=== PATIENT | male | born 1940 | race Caucasian/White ===

== ENCOUNTER 2016-09-02 16:14 | Observation (INO) | payer OTHER ==
--- NOTE | ~2016-09-02 | CO ---
Unit #: [id number] #: [id number] Patient: TANG PATE [id number] [facility]. [place] [id number] [facility] [place] [facility]. [place], [place] [address] [id number] MR#: [id number] NAME: TANG PATE ROOM: 550 Age: 75 Sex: M Admission Date: 09/02/2016 : 1940 Attending Physician: Vashti Hussein M.D. Primary Care Physician: Hank Paez M.D. Consultation Date: 09/03/2016 CONSULTATION REPORT REASON FOR CONSULTATION Atypical chest pain and poorly-controlled hypertension. HISTORY OF PRESENT ILLNESS This is a 75-year-old white male who is well known to Dr. Moreau. He sees him in the office. He has a history of having a stent placed in 2005 and 2008 and had a normal stress test on May 29 of last year. His ejection fraction was 69%. He also had a heart catheterization about a year ago that revealed that the stents were patent. Patient has hypertension, benign prostatic hypertrophy, and hyperlipidemia. Patient had recent cervical fusion. Surgery was done at the [facility] on August 15. Since that time, he says he has been noting some right-sided chest pain and also having some achiness over the incisional site. He has been having some problems with his blood pressure also. He admits that sometimes he forgets to take his blood pressure and then may skip it for that day, but he tries to stay compliant. He took his blood pressure the morning of admission, and he said his blood pressure was reading 180/110 and his heart rate was 108. The chest pain he is experiencing is right anterior chest wall without any radiation. He says it feels like just waxing and waning pushing and aching pressure. He denies any pain over his midsternal or over on the left anterior chest wall side. He denies any pain in his jaws or down upper extremities. He denies any shortness of breath. He has had no dizziness, presyncope, or syncopal episode. He denies any fever or chills and no nausea, vomiting, diarrhea, or abdominal pain. In the emergency room, patient's blood pressure was 175/103, heart rate 102, and temperature was 100. Patient had a mild elevation in his WBC which was 13.1 and lactic acid was elevated at 2.4. His chest x-ray was unremarkable. CT of the chest was done and was negative for PE and did not reveal any pneumonia. His urinalysis was unremarkable. Patient also states that since his surgery he has been having occasionally some difficulty swallowing his food, and he would like to make sure that there are not any issues going on since the surgery. He will get a swallowing study. Patient was given an extra dose of lisinopril and started on some Norvasc. 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 PAST MEDICAL HISTORY 1. Coronary artery disease. In 2005, he had PCI and stent to the RCA. In 2008, he had PCI and stent to the circumflex. Unit #: [id number] #: [id number] Patient: TANG PATE 2. May 2015 cardiac catheterization revealed LVEF of 60% to 65%, LAD 30% to 40% stenosis, left main was normal, and left circumflex patent stent with 40% stenosis in the first marginal branch. The RCA stent was patent with moderate dilatation of the aortic root. No aortic insufficiency. 3. May 2016 stress test at [facility] revealed an EF of 69%, no ischemia, and normal wall motion. 4. Hypertension. 5. Benign prostatic hypertrophy. 6. Anxiety. 7. Hyperlipidemia. 8. History of vertigo. 9. Nonsmoker. 10. History of ascending aortic aneurysm which is stable. 11. Recent cervical fusion by Dr. Villegas. 12. Stable ascending aortic aneurysm measuring 4.3 to 4.4 cm. PAST SURGICAL HISTORY 1. Percutaneous coronary intervention and stent to the RCA in 2005. 2. Percutaneous coronary intervention and stent to the circumflex 2008. 3. Cervical fusion at the [facility] on August 15, 2016. 4. Transurethral resection of the prostate. HOME MEDICATIONS 1. Flomax 0.4 mg p.o. daily. 2. Percocet 10/325 at 1 tablet p.o. every 4 hours p.r.n. 3. Inderal 40 mg p.o. twice daily. 4. Pepcid 40 mg p.o. twice daily. 5. Flexeril 10 mg p.o. every 8 hours p.r.n. 6. Ambien 10 mg p.o. at bedtime p.r.n. 7. Pravastatin 10 mg p.o. at bedtime. 8. Sertraline 50 mg p.o. daily. 9. Aspirin 325 mg p.o. daily. 10. Hydrochlorothiazide 25 mg p.o. daily. 11. Lisinopril 20 mg p.o. daily. 12. Sulindac 150 mg p.o. twice daily. 13. Potassium chloride 10 mEq p.o. twice daily. ALLERGIES COMPAZINE, PERCODAN, XANTHINES, PHENOTHIAZINES, AMINOPHYLLINE, MORPHINE, PROCHLORPERAZINE, CODEINE, OXYCODONE, MORPHINE WHEN MIXED WITH LOPRESSOR, AND CODEINE AND LOPRESSOR WHEN MIXED WITH MORPHINE-HE STATES HIS BLOOD PRESSURE BECOMES LOW ON THESE TWO MEDICATIONS. SOCIAL HISTORY Patient is a and lives by himself. He has been a lifelong nonsmoker and no alcohol or illicit drug abuse. FAMILY HISTORY His father and brother both of sudden cardiac . His sister of colon cancer. Diabetes and hypertension run in his family. REVIEW OF SYSTEMS See details in History of Present Illness. PHYSICAL EXAMINATION GENERAL: On exam, Mr. Pate is a 75-year-old white male in no acute respiratory distress. He is awake, alert, and oriented. Unit #: [id number] #: [id number] Patient: TANG PATE VITAL SIGNS: This morning blood pressure is 166/85, heart rate 60, respirations 18, temperature 98.1, and O2 saturations 99% on room air. NECK: Trachea midline. No thyromegaly or lymphadenopathy. Normal carotid upstrokes. No jugular venous distention. Noticed on the right-sided neck line previous incision healing well. HEART: S1 and S2, regular rate and rhythm. Soft systolic murmur left sternal border. LUNGS: Bilaterally clear throughout. No wheezes, rales, or rhonchi. ABDOMEN: Soft and nontender. Positive bowel sounds present. No hepatosplenomegaly. EXTREMITIES: Pedal pulses are palpable. No pedal edema. DIAGNOSTIC STUDIES LABORATORY: Glucose is 100, BUN 13, creatinine 0.8, eGFR above 60, sodium 143, potassium 4.3, chloride 103, CO2 of 27, calcium 9.1, magnesium 1.7, total protein 6.5, albumin 3.9, bilirubin total 0.7, AST 24, ALT 28, and alkaline phosphatase is 105. BNP is 60. Lactic acid was 2.4 on admission and this morning is 1.9. TSH is 1.44. WBC 10.9, hemoglobin 13.8, hematocrit 39.9, and platelets 221,000. Negative influenza A and B screen. Urinalysis with 1+ urobilinogen, otherwise unremarkable. Initial cardiac enzymes: CK-MB is 2.7 and troponin less than 0.05. CK-MB 1.4 and troponin less than 0.05. INR is 1. IMAGING: Chest x-ray shows lungs are well expanded and clear. No active disease. CT of the chest with contrast shows no evidence of pulmonary embolism, otherwise nothing acute. Stable ascending aortic aneurysm measuring 4.3 to 4.4 cm. No dissection. CARDIOLOGY: EKG shows normal sinus rhythm with ventricular rate 92 beats per minute, probable Q wave in V1, poor R wave progression, and also Q waves in inferior leads. IMPRESSION 1. Right anterior chest wall/atypical chest pain. 2. Poorly-controlled hypertension. 3. Hypokalemia. 4. Dysphagia since his recent cervical fusion. 5. Elevated lactic acid. 6. Coronary artery disease. See details in History of Present Illness. 7. Stable ascending aortic aneurysm. 8. Benign prostatic hypertrophy. 9. Gastroesophageal reflux disease. PLANS 1. Cardiology consulted to assist with evaluation and management. 2. Patient currently takes lisinopril, Inderal, and hydrochlorothiazide for his blood pressure management at home. According to the patient, he had been on Norvasc a few weeks back, and that was stopped by his primary care physician. But will put him back on the Norvasc at 10 mg daily, in addition to increase his dose of lisinopril from 20 mg daily to 20 mg twice daily. 3. Supplement patient's potassium and will discharge home on potassium supplement in addition to keeping him on his hydrochlorothiazide daily. 4. On exam, there are no signs or symptoms of unstable angina. His chest pain in the right anterior chest wall is atypical. It is more musculoskeletal in nature. 5. Patient has an appointment to follow up with Dr. Moreau on , Unit #: [id number] #: [id number] Patient: TANG PATE October 23, at 3:30 p.m. The plans are if the patient's blood pressure stabilizes by this afternoon and he ambulates without any issues, and also if he has a negative swallow test, he will be discharged home today. 6. Instruct the patient when he is monitoring his blood pressure to call our office if he feels like he needs to report any blood pressure readings. 7. Encourage the patient to be compliant with his medication. He admits to not taking his blood pressure medication correctly, and patient verbalized understanding. 8. Further recommendations pending per Dr. Jimenes. Thank you very much for allowing us to assist in the care. Dictated by... Xochilt Blanco A.P.R.N. for Martha Sparks/nighat TD: 09/03/2016 21:58 JOB #: [id number] CC: Alejandro Moreau M.D. CONSULTATION REPORT X Xochilt Blanco APRN X CONSULTATION REPORT
--- NOTE | ~2016-09-02 | HP ---
Unit #: [id number] #: [id number] Patient: TANG PATE [id number] [place] [id number] [facility]. [place], [place] [address] [id number] MR#: [id number] NAME: TANG PATE ROOM: Age: 75 Sex: M Admission Date: 09/02/2016 : 1940 Attending Physician: Ester Ren M.D. Primary Care Physician: Hank Paez M.D. HISTORY AND PHYSICAL CHIEF COMPLAINT Chest pain, elevated blood pressure. HISTORY OF PRESENT ILLNESS Mr. Pate is a nice 75-year-old male who is two weeks status post anterior cervical neck fusion. This was done by Dr. Villegas on August 15, 2016 at [facility]. Patient states he has been doing well since surgery; however, today he noticed some right-sided chest pain. This is deeply achy and tender to palpation and present over the lateral portion of the pectoral muscle. This has not been associated with any nausea or vomiting nor has the patient had any shortness of breath. He denies any cough. He denies any lightheadedness. However, when he started having this pain today at home he became concerned, took his blood pressure and noted that it was high though he cannot recall the reading. He states that his pulse rate was also elevated at 108 and states his normal pulse runs in the 60s. He decided to wait a little bit, recheck his blood pressure and pulse rate and both were still high. He became significantly concerned and called EMS after discussing this with his primary care provider. Upon presentation to the ER here patient was only mildly tachycardic with a heart rate of 102 and blood pressure was elevated at 175/103. Temperature was elevated x1 at 100.0. Patient had blood work drawn demonstrating a mild elevation in his white blood cell count to 13.1 and lactic acid was mildly elevated at 2.4. However, patient has subsequently undergone a chest x-ray which is unremarkable, a CT angiogram of the chest which is negative for PE and does not reveal any pneumonia and a urinalysis which is unremarkable. He denies any melena, hematochezia. He denies any diarrhea. In fact he has had constipation. Patient is very concerned that he was sent home from [facility] too early after his surgery which is the following day and thinks he has not been doing well since then. He has not noticed any drainage from his incision site. He has not noticed any significant erythema of his incision site and denies any fevers prior to today. Again he has had no cough. He denies any heartburn. He does endorse some nocturia which is chronic. He does endorse some difficulty swallowing since his surgery. Patient is being placed in observation due to his elevated blood pressure and his atypical chest pain. I will note the patient is asking to see Dr. 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 PAST MEDICAL HISTORY 1. Coronary artery disease, status post stenting x2. Per record review patient had a stent of the RCA in October 2005 and a stent to the left circumflex in 2007. Unit #: [id number] #: [id number] Patient: TANG PATE 2. Hypertension. 3. Hyperlipidemia. 4. Benign prostatic hypertrophy. 5. Gastroesophageal reflux disease. 6. Cervical degenerative disease status post fusion. PAST SURGICAL HISTORY Past surgical history includes: 1. TUNA. 2. TURP. 3. Heart cath x4 with stenting as previously noted. 4. Recent cervical fusion done by Dr. Villegas. ALLERGIES Include Compazine, oxycodone, xanthenes, phenothiazines, aminophylline, morphine when mixed with Lopressor, codeine and Lopressor when mixed with morphine. He states his blood pressure becomes low on these two medications. FAMILY HISTORY Family history is significant for coronary artery disease in the patient's father and brother both of whom of sudden cardiac . The patient's sister of colon cancer. Diabetes also runs in the family as does hypertension SOCIAL HISTORY Patient is a and lives by himself. He has never smoked nor does he ever drink any alcohol. REVIEW OF SYSTEMS Endorses some constipation. Denies any chest pain outside of this localized chest pain. He does have significant concerns he may fall at home though he has not fallen in many months and he is concerned that perhaps again he was sent home from [facility] too early. He also states his blood pressure at home is checked several times daily and he notices during the middle of the day his blood pressure gets to 160 to 170 systolic but never "as high as it is now." Otherwise a 10-point review of systems is negative. He has not had any new visual changes. He intermittently has some tingling/numbness of the hands, namely thumb through middle finger but this is resolved currently. He has not had any new significant change in nocturia or urinary hesitancy. He denies any hematuria. PHYSICAL EXAMINATION VITAL SIGNS: Temperature upon presentation 100.0. Current temperature 98.1. Blood pressure 195/79 currently. This was as high as 199/96. Pulse rate 87. Respiratory rate 15. Oxygen saturation is in the upper 90s on room air. GENERAL: Patient is awake, alert and oriented x3. He is very pleasant but appears mildly anxious. HEENT: Pupils equally round and reactive to light bilaterally. Anicteric sclerae. No significant conjunctival pallor. Mild cataracts noted. Oropharynx with moist mucous membranes. No erythema or exudate. NECK: Supple. No lymphadenopathy. No thyromegaly. No JVD. HEART: Regular rate and rhythm without murmur, rub or gallop. LUNGS: Lungs are clear to auscultation bilaterally without wheezes, rhonchi or crackles. ABDOMEN: Abdomen is soft, nontender, nondistended. Positive bowel Unit #: [id number] #: [id number] Patient: PATE,ARNOLD sounds. No appreciable hepatosplenomegaly. EXTREMITIES: No cyanosis, clubbing or edema. Pedal pulse 2/4. SKIN: Skin is warm, moist. Incision over the right lower anterior neck is approximately 2 inches in width. There is an overlying scab but the surrounding area does not demonstrate any significant erythema or fluctuance. There is no induration noted and no drainage from the wound. MUSCULOSKELETAL: No significant abnormalities upon joint exam. Patient does have point tenderness to the very lateral portion of the right pectoral muscle, essentially mildly medial and inferior to the right shoulder and this does reproduce his chest pain. NEUROLOGIC: Cranial nerves II through XII intact. Sensation, strength and deep tendon reflexes are all grossly normal. Gait however was not assessed. PSYCHIATRIC: No suicidal or homicidal ideation but does appear anxious to me personally. DIAGNOSTIC STUDIES LABORATORY: Lab work done in the emergency department reveals a negative troponin x2. CBC reveals a white blood cell count of 13.2, hemoglobin 14.3, platelet count of 264,000 with normal differential. INR normal at 1.0. Lactic acid was initially 2.4 and repeat is currently pending. CMP reveals a sodium of 136, potassium 3.1, chloride 98, bicarb 28, BUN 19, creatinine 0.9, glucose of 143. LFTs are all normal with the exception of a mildly elevated alkaline phosphatase of 105. BNP is normal at 60. Urinalysis is also normal. Influenza swab is negative. CARDIOVASCULAR: EKG done in the emergency department reveals normal sinus rhythm. The patient does have Q waves in the inferior leads, namely II, III and aVF in addition to a large Q wave in V1. However there are no other acute ST or T-wave abnormalities. IMAGING: Chest x-ray done upon presentation to the emergency department essentially reveals a clear chest. CT angiogram of the chest done in the emergency department is negative for pulmonary embolism. The patient has a stable ascending aortic aneurysm that is known. There is no evidence of infiltrate. ASSESSMENT 1. Systemic inflammatory response syndrome without evidence of infection. 2. Atypical chest pain, likely musculoskeletal in origin. 3. Self-reported dysphagia with concerns for aspiration given recent cervical fusion. 4. Recent cervical fusion performed by Dr. Villegas. 5. Hypertensive urgency with questionable control of blood pressure at baseline. 6. Hypokalemia. 7. Stable ascending aortic aneurysm. 8. Benign prostatic hypertrophy. 9. Gastroesophageal reflux disease. 10. Coronary artery disease with last known stenting in 2007. 11. Anxiety. PLAN 1. Will place patient in observation overnight with telemetry. 2. I am going to follow up repeat lactic acid level. Patient was given Zosyn, vancomycin and tobramycin in the ER but again there has been Unit #: [id number] #: [id number] Patient: TANG PATE no evidence of infection on CT scan or urinalysis and his fever has been minimal. I am going to continue him on IV Levaquin given I have concern about aspiration. I am going to hold sepsis protocol otherwise given source of infection is unclear. In addition IV fluids would worsen blood pressure. 3. Per patient's request I am going to ask Dr. Payne to evaluate him regarding his atypical chest pain but I suspect this pain is muscular and secondary to his cervical spine collar. 4. I will have Speech evaluate the patient regarding his swallowing and see if he is having any aspiration given his recent surgery. 5. Will continue patient's home antihypertensive medications. In addition I will add Norvasc with the first dose tonight, an extra dose of lisinopril tonight and hydralazine on a p.r.n. basis. 6. Will continue home medication for benign prostatic hypertrophy, reflux and coronary artery disease. 7. Replace potassium orally. 8. Early ambulation as source of DVT prophylaxis. Dictated by Martha Ortiz/seth TD: 09/02/2016 20:35 JOB #: [id number] HISTORY AND PHYSICAL X Vashti Hussein MD HISTORY AND PHYSICAL
--- NOTE | ~2016-09-02 | CT16 ---
[facility] A Service of [facility] RADIOLOGY TEXT RESULTS PATIENT: TANG GONG LOCATION: [facility] 550-01 : 39 UNIT #: [id number] AGE: [address]: Vashti Hussein MD SEX: M ORDER DR: [id number] [facility] [address]. [place], [place] [address] [id number] MR#: [id number] Acc #: [id number] NAME: TANG GONG : 1940 SEX: M STUDY DATE/TIME: 09/02/2016 17:14 UNIT: [facility] ROOM: [facility] STUDY DESCRIPTION: CT Angio Chest for PE Attending Physician: Vashti Hussein M.D. Ordering Physician: Ester Ren M.D. Primary Care Physician: Hank Paez M.D. MEDICAL IMAGING REPORT This report is preliminary unless electronic signature is present EXAM CT of the chest with contrast, PE protocol. INDICATIONS 75-year-old male with right chest pain since August 15, today with increasing pain and heart rate. TECHNIQUE CT of the chest was performed following administration of IV contrast using a pulmonary embolism protocol. Coronal and sagittal reformatted images obtained. Comparison is made with 06/17/[address] exam was performed with one or more of the following radiation dose reduction techniques: automatic exposure control, adjustment of mA and/or kV according to patient size, and iterative reconstruction. FINDINGS There is no evidence of pulmonary embolism. There is a stable ascending aortic aneurysm measuring about 4.3-4.4 cm. There is no dissection. The descending thoracic aorta is within normal limits. No pleural effusion or suspicious lymphadenopathy. Coronary artery calcifications. There is minimal biapical scarring. There are a few scattered benign micronodules which are stable. There are scattered calcified granulomas. No suspicious nodule or airspace consolidation. Limited imaging of the upper abdomen is unremarkable. The bone windows are unremarkable.. IMPRESSION 1. There is no evidence of pulmonary embolism. 2. No acute findings. [facility] A Service [facility] RADIOLOGY TEXT RESULTS PATIENT: TANG GONG LOCATION: [facility] 550-01 : 39 UNIT #: [id number] AGE: [address]: Vashti Hussein MD SEX: M ORDER DR: 3. Stable ascending aortic aneurysm. 4. No dissection. Dictated by... Nickolas Negrete M.D. THIS IS AN ELECTRONICALLY VERIFIED REPORT Nickolas Negrete M.D. at 09/03/2016 3:36 PM SUKHJINDER/jeffery TD: 09/03/2016 07:20 JOB #: [id number] MEDICAL IMAGING REPORT COPY
--- NOTE | ~2016-09-02 | EKG ---
PATIENT: TANG GONG UNIT #: [id number] Ventricular Rate: 92 BPM Atrial Rate: 92 BPM P-R Interval: 168 ms QRS Duration: 90 ms Q-T Interval: 374 ms QTC Calculation(Bezet): 462 ms P [place]: 24 degrees Calculated R [place]: 21 degrees Calculated T [place]: 38 degrees Diagnosis Line: Normal sinus rhythm Diagnosis Line: Normal ECG Diagnosis Line: When compared with ECG of 17-APR-2010 06:26, Diagnosis Line: Vent. rate has increased BY 30 BPM Diagnosis Line: Minimal criteria for Anterior infarct are no Diagnosis Line: longer Present Diagnosis Line: Confirmed by RUSLAN REYES MD ([id number]) on 09/04/2016 Diagnosis Line: 5:31:18 PM INTERPRETING MD: ERIC LIN
--- NOTE | ~2016-09-02 | DS ---
Unit #: [id number] #: [id number] Patient: TANG PATE [id number] [address] [place], [place] [address] [id number] MR#: [id number] NAME: TANG PATE ROOM: 550 Age: 75 Sex: M Admission Date: 09/02/2016 : 1940 Discharge Date: 09/03/2016 Attending Physician: Vashti Hussein M.D. Primary Care Physician: Hank Paez M.D. DISCHARGE SUMMARY PRINCIPAL DIAGNOSES 1. Hypertensive urgency. 2. Systemic inflammatory response syndrome without evidence of sepsis. 3. Dysphagia following anterior cervical fusion without evidence of aspiration. 4. Atypical/musculoskeletal chest pain. 5. Recent anterior cervical fusion, currently being maintained on C-collar. 6. Coronary artery disease with negative stress test in May 2016. 7. Hypokalemia. 8. Known ascending aortic aneurysm, stable. 9. Anxiety. 10. Benign prostatic hypertrophy. 11. Gastroesophageal reflux disease. 12. Hyperlipidemia. 13. Essential tremor. CONSULTANTS Dr. Jimenes - Cardiology. PROCEDURES 1. Chest x-ray on September 02, 2016, with no acute findings. 2. CT angiogram of the chest on September 02, 2016, which was negative for pulmonary embolism. The patient did not have any signs of infiltrate. He did have a stable ascending aortic aneurysm. CLINICAL HISTORY/HOSPITAL COURSE Mr. Pate is a nice 75-year-old male who presents to the emergency department with chest pain and elevated blood pressure. Please refer to H and P for further details. Cardiac workup in the emergency department is unremarkable and includes three negative troponins. However, patient's blood pressure was ranging in the 190s to the low 200s systolic and, thus, he was placed in observation for evaluation. The patient was placed on lisinopril 20 mg twice daily in addition to Norvasc and his other home medications. This morning, blood pressures are improved at approximately 150/80 systolic. We are going to continue this medication regimen and he can follow up with his primary care physician, Dr. Paez, in addition to Dr. Moreau as an outpatient. The patient did have a stress test in May 2016 which was unremarkable. His chest pain was located peripherally over the right pectoral region where his C-collar sits. This is not felt to be cardiac chest pain and no further cardiac workup will be initiated. Unit #: [id number] #: [id number] Patient: TANG PATE The patient was mildly hypokalemic in the emergency department and we are going to increase his potassium supplementation as an outpatient. Will have to monitor closely given his hydrochlorothiazide treatment. There was concern upon presentation of perhaps patient may have sepsis given he had an elevated white blood cell count and a single elevated temperature of 100.0. However, patient remained afebrile throughout the rest of the hospitalization and his white blood cell count today is down to 10. I suspect his white blood cell count was reactive. He did receive a few doses of antibiotics in the emergency department but I cannot find anything source of infection and, thus, I am going to discontinue all antibiotics upon discharge. DISCHARGE CONDITION Stable. DISCHARGE STATUS Discharge to home. DISCHARGE MEDICATIONS 1. Potassium chloride 20 mEq p.o. b.i.d. 2. Flexeril 10 mg p.o. q.8 hours p.r.n. for muscle spasms. 3. Flomax 0.4 mg daily. 4. Zoloft 50 mg daily. 5. Ambien 10 mg at bedtime p.r.n. for insomnia. 6. Norvasc 10 mg daily. 7. Inderal 40 mg b.i.d. 8. Hydrochlorothiazide 25 mg p.o. daily. 9. Pravastatin 10 mg at bedtime. 10. Zestril 20 mg b.i.d. 11. Pepcid 40 mg b.i.d. 12. Aspirin 325 mg daily. 13. Sulindac 150 mg b.i.d. 14. Percocet 10/325, one tablet every four to six hours p.r.n. for pain. DISCHARGE INSTRUCTIONS The patient was instructed to follow a heart healthy low salt diet. He can increase his activity as tolerated. He is to continue to wear a C-collar while awake though he can remove it to sleep, to shower and to eat. FOLLOWUP The patient will follow up with his primary care physician, Dr. Paez, in two weeks, and he has a followup appointment with Dr. Moreau on October 23, at 3:30 p.m. Dictated by... VasthiMartha Encarnacion/nanci TD: 09/04/2016 05:46 JOB #: [id number] Unit #: [id number] #: [id number] Patient: PATETANG DISCHARGE SUMMARY X Vashti Hussein MD X DISCHARGE SUMMARY
--- NOTE | ~2016-09-02 | CR72 ---
[facility] A Service of [facility] & [facility] / [facility] RADIOLOGY TEXT RESULTS PATIENT: TANG GONG LOCATION: [facility] [id number] : 39 UNIT #: [id number] AGE: [address]: Vashti Hussein MD SEX: M ORDER DR: [id number] [facility] [address]. [place], [place] [address] [id number] MR#: [id number] Acc #: [id number] NAME: TANG GONG : 1940 SEX: M STUDY DATE/TIME: 09/02/2016 15:06 UNIT: [facility] ROOM: STUDY DESCRIPTION: CR Chest Single View Portable Attending Physician: Ester Ren M.D. Ordering Physician: Ester Ren M.D. Primary Care Physician: Hank Paez M.D. MEDICAL IMAGING REPORT This report is preliminary unless electronic signature is present EXAM Portable chest INDICATIONS 75-year-old male with history of right-sided chest pain and shortness of breath today. Comparison with 05/29/2016. FINDINGS The lungs are well expanded and clear. The heart size is normal. Postoperative changes of the cervical spine. IMPRESSION No active disease. Dictated by... Nickolas Negrete M.D. THIS IS AN ELECTRONICALLY VERIFIED REPORT Nickolas Negrete M.D. at 09/03/2016 3:36 PM SUKHJINDER/miryam TD: 09/02/2016 22:17 JOB #: [id number] MEDICAL IMAGING REPORT COPY
[2016-09-02 15:21] LABS: BASOPHIL# 0.1 X10e3 (0-0.3); BASOPHIL% 0.4 % (0-2.5); EOSINOPHIL% 0.4 % (0.0-7.0); HEMATOCRIT 41.4 % (38.0-50.0); HEMOGLOBIN 14.3 gm/dL (13.0-16.0); LYMPHOCYTE# 3.5 X10e3 (1.0-3.5); LYMPHOCYTE% 26.7 % (17.0-45.0); MEAN CELL VOLUME 86.2 FL (83-96); MEAN CORPUSCULAR HEMOGLOBIN 29.9 PG (28-34); MEAN CORPUSCULAR HGB CONC 34.7 g/dL (30-36); MEAN PLATELET VOLUME 8.4 FL (6.5-11.5); MONOCYTE# 1.1 X10e3 (0-1.0); MONOCYTE% 8.1 % (3.0-12.0); NEUTROPHIL# 8.5 X10e3 (1.5-7.1); NEUTROPHIL% 64.4 % (40-75); PLATELET COUNT 264 X10e3 (140-420); RED CELL DISTRIBUTION WIDTH 13.2 % (11.0-15.5); WHITE BLOOD COUNT 13.2 X10e3 (4.0-10.5)
[2016-09-02 15:21] LABS: POC - CKMB 2.7 ng/mL (0.0-7.9); POC - TROPONIN <0.05 ng/mL (<=0.05)
[2016-09-02 15:26] LABS: DIFF IND NO
[2016-09-02 15:33] LABS: PARTIAL THROMBOPLASTIN TIME 23.6 SECONDS (23.5-31.3); PROTHROMBIN TIME (PATIENT) 10.7 SECONDS (9.6-11.5)
[2016-09-02 15:43] LABS: ALBUMIN SERUM 3.9 g/dL (3.5-5.0); ALKALINE PHOSPHATASE 105 U/L (32-92); ALT (SGPT) 28 U/L (10-40); AST (SGOT) 24 U/L (10-42); BILIRUBIN, DIRECT 0.1 mg/dL (0.0-0.2); BILIRUBIN,INDIRECT 0.6 mg/dL (0.0-0.9); BILIRUBIN,TOTAL 0.7 mg/dL (0.2-2.0); BLOOD UREA NITROGEN 19 mg/dL (9-23); BUN/CREATININE RATIO 21.11; CALCIUM SERUM 9.7 mg/dL (8.4-10.2); CARBON DIOXIDE 28 mmol/L (22-31); CHLORIDE 98 mmol/L (100-111); CREATININE SERUM 0.9 mg/dL (0.6-1.4); GLOM FILT RATE Estimated ABOVE60 mL/min (>60); GLUCOSE FASTING 143 mg/dL (70-110); POTASSIUM 3.1 mmol/L (3.5-5.1); PROTEIN TOTAL SERUM 6.5 g/dL (6.0-8.3); SODIUM 136 mmol/L (135-145)
[~2016-09-02 16:14] MED LIST: ACETAMINOPHEN325 MG PO; ASPIRIN; ASPIRIN PO; BENICAR; BENICAR HCT 40-1 TAB PO; CARDURA PO; CIPRO PO; COLACE1 SUPP.RE1 RC; GUAIFENESIN LA600 M1 PO; HYDROCHLOROTH12.5 MG PO; HYDROCODON-ACE1 EAC7 PO; LOPRESSOR PO; LORCET PLUS TAB1 TAB PO; METOPROLOL TAR25 MG PO; MIRALAX17 GM PO; PLAVIX; PLAVIX PO; PRAVACHOL PO; PREVACID15 MG PO; PROSCAR5 MG PO; PROTONIX; SENNA PO; SULAR PO; ZEGERID40 MG/PKT PO; ZOCOR; ZYRTEC5 MG PO; [UNRECOGNIZED DRUG - REMARK]
[2016-09-02 16:42] LABS: URINE SOURCE CLEAN CATCH
[2016-09-02 16:59] LABS: URINE APPEARANCE CLEAR; URINE BILIRUBIN NEG (NEG); URINE BLOOD NEG (NEG); URINE COLOR YELLOW; URINE GLUCOSE NEG (NEG); URINE KETONE NEG (NEG); URINE LEUKOCYTE ESTERASE NEG (NEG); URINE NITRATE NEG (NEG); URINE PROTEIN NEG (NEG)
[2016-09-02 17:06] LABS: CULTURE INDICATED? NO
[2016-09-02] MEDS ORDERED: FLOMAX0.4 M1 PO (17:27)
[2016-09-02] MEDS ORDERED: PERCOCET 10/3251 TAB PO (17:28)
[2016-09-02] MEDS ORDERED: FLEXERIL10 MG PO (17:30)
[2016-09-02] MEDS ORDERED: INDERAL40 MG PO (17:30)
[2016-09-02] MEDS ORDERED: PEPCID40 MG PO (17:30)
[2016-09-02] MEDS ORDERED: BAYER ASPIRIN325 M1 PO (17:31)
[2016-09-02] MEDS ORDERED: PRAVASTATIN SOD10 MG PO (17:31)
[2016-09-02] MEDS ORDERED: AMBIEN10 MG PO (17:31)
[2016-09-02] MEDS ORDERED: SERTRALINE HCL50 MG PO (17:31)
[2016-09-02] MEDS ORDERED: LISINOPRIL20 MG PO (17:32)
[2016-09-02] MEDS ORDERED: SULINDAC150 MG PO (17:32)
[2016-09-02] MEDS ORDERED: HYDROCHLOROTHIA25 MG PO (17:32)
[2016-09-02] MEDS ORDERED: POTASSIUM CHLO10 ME1 PO (17:33)
[2016-09-02 18:20] LABS: POC - CKMB 1.4 ng/mL (0.0-7.9); POC - TROPONIN <0.05 ng/mL (<=0.05)
[2016-09-02 18:41] LABS: INFLUENZA A NEG (NEG); INFLUENZA B NEG (NEG)
[2016-09-03 08:19] LABS: BASOPHIL# 0.1 X10e3 (0-0.3); BASOPHIL% 0.5 % (0-2.5); EOSINOPHIL# 0.3 X10e3 (0-0.7); EOSINOPHIL% 2.4 % (0.0-7.0); HEMATOCRIT 39.9 % (38.0-50.0); HEMOGLOBIN 13.8 gm/dL (13.0-16.0); LYMPHOCYTE# 2.9 X10e3 (1.0-3.5); LYMPHOCYTE% 26.4 % (17.0-45.0); MEAN CELL VOLUME 88.9 FL (83-96); MEAN CORPUSCULAR HEMOGLOBIN 30.7 PG (28-34); MEAN CORPUSCULAR HGB CONC 34.5 g/dL (30-36); MEAN PLATELET VOLUME 8.9 FL (6.5-11.5); MONOCYTE# 1.2 X10e3 (0-1.0); MONOCYTE% 10.7 % (3.0-12.0); NEUTROPHIL# 6.6 X10e3 (1.5-7.1); PLATELET COUNT 221 X10e3 (140-420); RED BLOOD COUNT 4.49 X10e (3.90-5.60); RED CELL DISTRIBUTION WIDTH 13.8 % (11.0-15.5); WHITE BLOOD COUNT 10.9 X10e3 (4.0-10.5)
[2016-09-03 08:23] LABS: DIFF IND NO
[2016-09-03 08:38] LABS: BLOOD UREA NITROGEN 13 mg/dL (9-23); BUN/CREATININE RATIO 16.25; CALCIUM SERUM 9.1 mg/dL (8.4-10.2); CARBON DIOXIDE 27 mmol/L (22-31); CHLORIDE 103 mmol/L (100-111); CREATININE SERUM 0.8 mg/dL (0.6-1.4); GLOM FILT RATE Estimated ABOVE60 mL/min (>60); GLUCOSE FASTING 100 mg/dL (70-110); MAGNESIUM 1.7 mg/dL (1.6-3.0); POTASSIUM 4.3 mmol/L (3.5-5.1); SODIUM 143 mmol/L (135-145)
[2016-09-03] MEDS ORDERED: NORVASC10 MG PO (11:31)
== END 2016-09-03 14:29 | disposition home or self-care (01) ==
LOC: CED 16:14 → CEDOF 19:30 → C5B 22:25
PROVIDERS: Emergency Medicine; Internal Medicine
DX: I16.0 Hypertensive urgency (principal); R65.10 Systemic inflammatory response syndrome (SIRS) of non-infectious origin without acute organ dysfunction; R13.19 Other dysphagia; Z98.1 Arthrodesis status; R07.89 Other chest pain; E87.6 Hypokalemia; I71.2 Thoracic aortic aneurysm, without rupture; N40.0 Benign prostatic hyperplasia without lower urinary tract symptoms; K21.9 Gastro-esophageal reflux disease without esophagitis; I25.10 Atherosclerotic heart disease of native coronary artery without angina pectoris; Z95.5 Presence of coronary angioplasty implant and graft; F41.9 Anxiety disorder, unspecified; Z90.79 Acquired absence of other genital organ(s); Z82.41 Family history of sudden cardiac death; Z83.3 Family history of diabetes mellitus; Z82.49 Family history of ischemic heart disease and other diseases of the circulatory system; Z80.0 Family history of malignant neoplasm of digestive organs; Z88.5 Allergy status to narcotic agent; Z79.82 Long term (current) use of aspirin
CPT/HCPCS: 36415; 71010; 71275; 80048; 80076; 81003; 82553; 83605; 83735; 83880; 84443; 84484; 85025; 85610; 85730; 87040; 87804; 92610; 93005; 96365; 96375; 99285; G0378; G8996-GN; G8997-GN; G8998-GN; J0360; J1956; J2543; J3260; J3370; Q9967